=== PATIENT | male | born 1965 | race African-American/Black ===

== ENCOUNTER 2016-10-22 14:45 | Emergency (ER) | payer OTHER ==
[~2016-10-22] VITALS: Ht 172.7 cm; Wt 86.2 kg
[2016-10-22 14:45] VITALS: BP 138/69
--- NOTE | 2016-10-22 15:04 | NUR ---
refusing blood draw. refusing to provide urine sample. stable vitals. cleared by ermd.
== END 2016-10-22 15:06 | disposition home or self-care (01) ==
LOC: ER 14:47
DX: R42 Dizziness and giddiness (principal); I10 Essential (primary) hypertension; E11.9 Type 2 diabetes mellitus without complications
CPT/HCPCS: 99283; A4606; Z7610